=== PATIENT | female | born 1930 | race Caucasian/White ===

== ENCOUNTER → 2020-04-08 | Outpatient (CLI) | payer OTHER ==
[~2020-04-08] MED LIST: AMLODIPINE BESYL5 MG; ANUCORT HC25 MG; ASPIRIN CHILDRE81 MG; ATENOLOL25 MG; CELECOXIB200 M1 PO; ESIDREX,ORETIC,25 MG; FISH OIL 1,0001 EAC4 PO; LEVOTHYROXIN0.125 MG; LISINOPRIL20 MG PO; MOBIC15 MG; PRESERVISION1 SGL; SIMVASTATIN40 MG; VITAMIN D400 I1 PO
== END | disposition home or self-care (01) ==
LOC: RAD 10:41
DX: M17.11 Unilateral primary osteoarthritis, right knee (principal); M25.761 Osteophyte, right knee